=== PATIENT | female | born 1960 | race Caucasian/White ===

== ENCOUNTER → 2023-12-11 | Emergency (ER) | payer OTHER ==
[~2023-12-11] MED LIST: MORPHINE 4 MG/ML SYR ONE; ONDANSETRON 4 MG/2 ML VIAL ONE
--- OUTSIDE RECORDS SUMMARY | 2023-12-11 09:48 | XMS REPORT | Clinical Summary ---
Author Name Unknown Organization [facility] [place] Address [address] [place] [address] Care Team Providers Care Seat Trimmer Name Role Phone Giuseppe Naranjo MD Primary Care Provider [phone] [place] Beltrán MD Unavailable [phone] Tapan Campos MD Unavailable [phone] Ky Gonzalez DPM Unavailable [phone] Matthew Ruiz MD Unavailable [phone] Allergies Active Allergy Reactions Criticality Noted Date Comments Penicillins Anaphylaxis High 03/23/2017 Medications Medication Sig Dispensed Refills Start Date End Date Status DULoxetine (CYMBALTA) 60 mg capsule Take 60 mg by mouth twice daily. 0 Active HYDROcodone-acetaminop hen (NORCO) 10 mg-325 mg per tablet Take 1 tablet by mouth 2 (two) times a day as needed. 0 Active methocarbamol (ROBAXIN) 500 mg tablet Take 1,000 mg by mouth 3 (three) times a day as needed. 0 Active meloxicam (MOBIC) 15 mg tablet Take 15 mg by mouth daily. 0 Active rOPINIRole (REQUIP) 1 mg tablet Take 1 mg by mouth at bedtime. 0 Active gabapentin (NEURONTIN) 300 mg capsule Take 300 mg by mouth 3 (three) times a day. 0 Active traZODone (DESYREL) 50 mg tablet Take 50 mg by mouth at bedtime. 0 Active celecoxib (CeleBREX) 200 mg capsule Take 1 capsule by mouth daily. 0 03/12/2017 Active desvenlafaxine (PRISTIQ) 50 MG ER tablet Take by mouth daily. 0 Active betamethasone dipropionate (DIPROLENE) 0.05 % creamIndications:Nummu lar eczema APPLY TO AFFECTED AREA TWICE A DAY 45 g 2 12/14/2017 Active Medical History Medical History Date Comments Herpes zoster Social History Tobacco Use Types Packs/Day Years Used Date Smoking Tobacco: Never Alcohol Use Standard Drinks/Week Comments No 0 (1 standard drink = 0.6 oz pur e alcohol) Sex and Gender Information Value Date Recorded Sex Assigned at Not on file Gender Identity Not on file Sexual Orientation Not on file Obstetrics History Plan of Treatment Health Maintenance Due Date Last Done Comments COVID-19 Vaccination (#1) 02/25/1961 Care Teams Seat Trimmer Relationship Specialty Start Date End Date Giuseppe Naranjo MD [address] [place] [id number] PCP - General Dermatology 03/21/17 North Beltrán MD [address] [place] [id number] PCP - External Primary Care Provider Internal Medicine 03/23/17 Tapan Campos MD [address] [place] [address] PCP - External Follow Up A Orthopedic Surgery 03/23/17 Ky Gonzalez DPM [address] [place] [address] [place] [address] PCP - External Follow Up B 03/23/17 Matthew Ruiz MD [address] [place] [address] [address] [place] [address] Physician Anesthesiology 03/23/17
--- NOTE | 2023-12-11 11:08 | RAD REPORT ---
EXAM DESCRIPTION: CT - Chest Abd Pelvis Wo Con - 12/11/2023 10:41 am CLINICAL HISTORY: Chest and abdominal pain status post fall COMPARISON: July 2023 TECHNIQUE: Computed axial tomography of the chest, abdomen and pelvis was obtained. Oral contrast wa s given. IV contrast was not requested. All CT scans are performed using dose optimization technique as appropriate and may include automated exposure control or mA/KV adjustment according to patient size. FINDINGS: The evaluation of mediastinum, tanvi, vessels and solid organs is limited secondary to the lack of IV contrast administration A mildly displaced fracture left ninth posterior rib. Mildly to moderately displaced fracture left te nth posterior rib. Nondisplaced fracture left posterior eleventh rib No pneumothorax. Tiny left pleural effusion A pulmonary contusion not present. No mediastinal hematoma. A few areas of subsegmental atelectasis left lower lobe 2 millimeter nodule lingula nonspecific but probably benign The liver, spleen, pancreas, adrenals and kidneys appear grossly normal There is no evidence of diverticulitis. 2.1 centimeter left ovarian cyst unchanged Postsurgical changes lumbar spine IMPRESSION: Fractures left ninth, tenth and eleventh posterior ribs No pneumothorax.
[2023-12-11 12:22] LABS: Absolute Lymphocytes (CBC) 1.2 K/uL (0.7-4.9); Hematocrit 37.8 % (36.0-45.0); Lymphocytes % 23.8 % (15.3-44.8); MCV 100.6 fL (80-100); MPV 9.2 fL (7.6-11.3); Platelets 172 thou/uL (152-406); RBC Red Blood Cell Count 3.76 M/uL (3.86-4.86)
[2023-12-11 12:36] LABS: Albumin 3.9 g/dL (3.4-5.0); Bilirubin Direct 0.1 mg/dL (0-0.2); Bilirubin Indirect, Calculated 0.6 mg/dL (0.2-0.8); Bilirubin Total 0.7 mg/dL (0.2-1.0); Magnesium 2.4 mg/dL (1.6-2.4); Potassium 3.9 mEq/L (3.5-5.1); Protein, Total 7.3 g/dL (6.4-8.2); Troponin High Sensitivity 6.8 pg/mL (<58.9)
--- NOTE | 2023-12-11 13:27 | EDPHYS ---
Physician Documentation [facility] Name: Loan Dodd Age: 63 yrs Sex: Female : 1960 Arrival Date: 12/11/2023 Time: 09:46 Bed 13 Private MD: ED Physician Angelo Bonilla HPI: 12/11 16:03 This 63 yrs old Female presents to ER via Ambulatory with complaints of Syncope - rt [id number], Fall Injury. 16:04 Patient presents to the ED 3 days following a syncopal event. Patient states that when rt she stood up, she became acutely lightheaded, losing consciousness, falling over the toilet. There is a brief loss of consciousness. She reports pain to the left side of her back, moderate in severity. The pain is nonradiating. Denies other acute complaints, no other aggravating or alleviating factors.. Historical: - Allergies: 10:05 PENICILLINS; ap3 - PSHx: 10:05 back sx X's 3; CHRISTAL knee replacements; ap3 - Immunization history:: Adult Immunizations up to date. - Social history:: Smoking status: Patient denies any tobacco usage or history of. - Family history:: not pertinent. ROS: 16:04 Constitutional: Negative for fever, chills, and weight loss, Cardiovascular: Negative rt for chest pain, palpitations, and edema, Respiratory: Negative for shortness of breath, cough, wheezing, and pleuritic chest pain, Abdomen/GI: Negative for abdominal pain, nausea, vomiting, diarrhea, and constipation, MS/Extremity: Negative for injury and deformity, Skin: Negative for injury, rash, and discoloration, Psych: Negative for depression, anxiety, suicide ideation, homicidal ideation, and hallucinations, 16:04 Back: Positive for pain at rest, pain with movement, 16:04 Neuro: Positive for syncope, Negative for altered mental status, Exam: 16:04 Constitutional: This is a well developed, well nourished patient who is awake, alert, rt and in no acute distress. Head/Face: Normocephalic, atraumatic. Chest/axilla: Normal chest wall appearance and motion. Nontender with no deformity. No lesions are appreciated. Cardiovascular: Regular rate and rhythm with a normal S1 and S2. No gallops, murmurs, or rubs. Normal PMI, no JVD. No pulse deficits. Respiratory: Lungs have equal breath sounds bilaterally, clear to auscultation and percussion. No rales, rhonchi or wheezes noted. No increased work of breathing, no retractions or nasal flaring. Abdomen/GI: Soft, non-tender, with normal bowel sounds. No distension or tympany. No guarding or rebound. No evidence of tenderness throughout. Skin: Warm, dry with normal turgor. Normal color with no rashes, no lesions, and no evidence of cellulitis. MS/ Extremity: Pulses equal, no cyanosis. Neurovascular intact. Full, normal range of motion. Neuro: Awake and alert, GCS 15, oriented to person, place, time, and situation. Cranial nerves II-XII grossly intact. Motor strength 5/5 in all extremities. Sensory grossly intact. Cerebellar exam normal. Normal gait. Psych: Awake, alert, with orientation to person, place and time. Behavior, mood, and affect are within normal limits. 16:04 ECG was reviewed by the Attending Physician. 16:04 Back: Tenderness to the left paraspinal region, no midline Tenderness, step-offs, Vital Signs: 10:03 BP 120 / 84; Pulse 82; Resp 17; Temp 97.6; Pulse Ox 99% on R/A; Weight 68.04 kg; Height ap3 5 ft. 2 in. ; Pain 8/10; 10:03 Body Mass Index 27.44 (68.04 kg, 157.48 cm) ap3 10:03 Pain Scale: Adult ap3 MDM: 10:11 Patient medically screened. rt 16:04 Differential Diagnosis: Syncope, dysrhythmia, electro disturbance, anemia, rib rt fracture, pulmonary contusion, pneumothorax. Data reviewed: vital signs, nurses notes. Consideration of Admission/Observation Escalation of care including admission/observation considered. Patient 3 days following syncopal event with essentially negative syncope workup, do not believe she requires admission for this. Patient does have multiple rib fractures. I did offer patient admission for pain control, states that she wishes to go home. She currently has adequate pain medications are not prescribed to her at home from her pain management doctor. Will give incentive spirometer, patient to follow-up as an outpatient, return precautions discussed.. I considered the following discharge prescriptions or medication management in the emergency department Medications were administered in the Emergency Department. See MAR. Independent interpretation of the following test(s) in the Emergency Department CT Scan: My interpretation is No pneumothorax seen on interpretation of CT scan images. Test considered but Not performed: CT: Denies head trauma, headache. CT scan head not indicated. Counseling: I had a detailed discussion with the patient and/or guardian regarding the historical points, exam findings, and any diagnostic results supporting the discharge/admit diagnosis, lab results, radiology results, the need for outpatient follow up, to return to the emergency department if symptoms worsen or persist or if there are any questions or concerns that arise at home. 12/11 10:12 Order name: Basic Metabolic Panel; Complete Time: 12:38 rt 12/11 10:12 Order name: CBC with Diff; Complete Time: 12:38 rt 12/11 10:12 Order name: LFT's; Complete Time: 12:38 rt 12/11 10:12 Order name: Magnesium; Complete Time: 12:38 rt 12/11 10:12 Order name: Troponin HS; Complete Time: 12:38 rt 12/11 10:12 Order name: CT Chest Abdomen Pelvis W/O Contrast; Complete Time: 11:11 rt 12/11 13:26 Order name: INCENTIVE SPIROMETRY rt 12/11 10:12 Order name: EKG; Complete Time: 10:13 12/11 10:12 Order name: Cardiac monitoring; Complete Time: 12:31 rt 12/11 10:12 Order name: EKG - Nurse/Tech; Complete Time: 12:51 12/11 10:12 Order name: IV Saline Lock; Complete Time: 12:31 12/11 10:12 Order name: Labs collected and sent; Complete Time: 12:31 rt 12/11 10:12 Order name: O2 Per Protocol; Complete Time: 12:31 rt 12/11 10:12 Order name: O2 Sat Monitoring; Complete Time: 12:31 12/11 13:28 Order name: Misc. Order: Please give incentive spirometer; Complete Time: 13:38 rt EC:04 Rate is 64 beats/min. Rhythm is regular, Normal Sinus Rhythm with No ectopy. QRS [place] rt is Normal. GA interval is normal. QRS interval is normal. QT interval is normal. No Q waves. T waves are Normal. No ST changes noted. Interpreted by me. Administered Medications: 13:18 Drug: morphine IVP or IV 4 mg IVP once over 4 mins Route: IVP; Infused Over: 4 mins; bp Site: right forearm; 13:28 Follow up: Response: No adverse reaction bp 13:19 Drug: Ondansetron IVP 4 mg IVP once; over 2 minutes Route: IVP; Site: right forearm; bp 13:28 Follow up: Response: No adverse reaction bp Disposition Summary: 12/11/23 13:27 Discharge Ordered Notes: Location: Home rt Problem: new rt Symptoms: have improved rt Condition: Stable rt Diagnosis - Syncope rt - Left posterior ninth through eleventh rib fractures rt Followup: rt - With: Private Physician - When: 2 - 3 days - Reason: Discharge Instructions: - Discharge Summary Sheet rt - Rib Fracture rt - Syncope rt - How to Use an Incentive Spirometer rt Forms: - Medication Reconciliation Form rt - Thank You Letter rt - Antibiotic Education rt - Prescription Opioid Use rt - Patient Portal Instructions rt - Leadership Thank You Letter rt Signatures: Dispatcher [employer] Eddie Flanagan RN RN bp Alessandra Grant RN RN ap3 Angelo Bonilla MD MD rt
--- NOTE | 2023-12-11 13:27 | ER ---
Nurse's Notes [facility] Name: Loan Dodd Age: 63 yrs Sex: Female : 1960 Arrival Date: 12/11/2023 Time: 09:46 Bed 13 Private MD: Diagnosis: Syncope;Left posterior ninth through eleventh rib fractures Presentation: 12/11 10:03 Chief complaint: Patient states: she fell on Monday12/09/2023 as a result from a ap3 syncopal episode. patient denies hitting her head or being on blood thinners. patient reports continued pain to her left side patient currently reports her pain as a 8/10 on the pain scale. Coronavirus screen: At this time, the client does not indicate any symptoms associated with coronavirus-19. Ebola Screen: No symptoms or risks identified at this time. Initial Sepsis Screen: Does the patient meet any 2 criteria? No. Patient's initial sepsis screen is negative. Does the patient have a suspected source of infection? No. Patient's initial sepsis screen is negative. Risk Assessment: Do you want to hurt yourself or someone else? Patient reports no desire to harm self or others. Onset of symptoms was December 09, 2023. 10:03 Method Of Arrival: Ambulatory ap3 10:03 Acuity: AILEEN 3 ap3 Triage Assessment: 10:07 General: Appears in no apparent distress. Behavior is calm, cooperative, appropriate ap3 for age. Pain: Complains of pain in left lateral posterior chest and left lateral anterior chest Pain currently is 8 out of 10 on a pain scale. Neuro: Level of Consciousness is awake, alert, obeys commands, Oriented to person, place, time, situation, Reports a syncopal episode. Cardiovascular: Patient's skin is warm and dry. Respiratory: Airway is patent Respiratory effort is even, unlabored, Respiratory pattern is regular, symmetrical. Historical: - Allergies: 10:05 PENICILLINS; ap3 - PSHx: 10:05 back sx X's 3; CHRISTAL knee replacements; ap3 - Immunization history:: Adult Immunizations up to date. - Social history:: Smoking status: Patient denies any tobacco usage or history of. - Family history:: not pertinent. Screenin:06 [facility] ED Fall Risk Assessment (Adult) History of falling in the last 3 months, ap3 including since admission Yes- physiologic fall (2 pts) Confusion or Disorientation No (0 pts) Intoxicated or Sedated No (0 pts) Impaired Gait Yes (1 pt) Mobility Assist Device Used Yes (1 pt). Abuse screen: Denies threats or abuse. Nutritional screening: No deficits noted. Tuberculosis screening: No symptoms or risk factors identified. Assessment: 13:38 Neuro: Level of Consciousness is awake, alert, obeys commands, Oriented to person, ap3 place, time, situation, Appropriate for age Speech is normal. Cardiovascular: Rhythm is regular. Vital Signs: 10:03 BP 120 / 84; Pulse 82; Resp 17; Temp 97.6; Pulse Ox 99% on R/A; Weight 68.04 kg; Height ap3 5 ft. 2 in. ; Pain 8/10; 10:03 Body Mass Index 27.44 (68.04 kg, 157.48 cm) ap3 10:03 Pain Scale: Adult ap3 ED Course: 09:50 Patient arrived in ED. im 09:50 Angelo Bonilla MD is Attending Physician. rt 10:05 Triage completed. ap3 10:07 Arm band placed on right wrist. ap3 10:43 CT Chest Abdomen Pelvis W/O Contrast In Process Unspecified. EDMS 12:04 Initial lab(s) drawn, by me, sent to lab. em1 12:04 Inserted saline lock: 22 gauge in right forearm, using aseptic technique. Blood em1 collected. 12:31 Eddie Szymanski, RN is Primary Nurse. bp 12:55 EKG done, by ED staff, reviewed by Angelo Bonilla MD. em1 13:38 Patient has correct armband on for positive identification. Adult w/ patient. ap3 13:38 No provider procedures requiring assistance completed. IV discontinued, intact, ap3 bleeding controlled, No redness/swelling at site. Pressure dressing applied. 13:39 Provided Education on: discharge instructions . ap3 Administered Medications: 13:18 Drug: morphine IVP or IV 4 mg IVP once over 4 mins Route: IVP; Infused Over: 4 mins; bp Site: right forearm; 13:28 Follow up: Response: No adverse reaction bp 13:19 Drug: Ondansetron IVP 4 mg IVP once; over 2 minutes Route: IVP; Site: right forearm; bp 13:28 Follow up: Response: No adverse reaction bp Medication: 13:38 VIS not applicable for this client. ap3 Outcome: 13:27 Discharge ordered by . rt 13:39 Discharged to home ambulatory, ap3 13:39 Condition: good 13:39 Discharge instructions given to patient, Instructed on discharge instructions, follow up and referral plans. Demonstrated understanding of instructions, follow-up care, 13:39 Patient left the ED. ap3 Signatures: Dispatcher [employer] EDMS Dante Villatoro em1 Eddie Szymanski RN RN bp Alessandra Grant RN RN ap3 Angelo Bonilla MD MD rt Ania Huerta Corrections: (The following items were deleted from the chart) 10:06 10:03 Chief complaint: Patient states: she fell on Monday12/09/2023 as a result from ap3 a syncopal episode. patient denies hitting her head or being on blood thinners. patient reports continued pain to her left hip. patient currently reports her pain as a 8/10 on the pain scale. ap3
[2023-12-11 14:38] VITALS: BP 120/84; TEMP 97.6; O2SAT 99
== END ==
LOC: ER 09:46
DX: S22.42XA Multiple fractures of ribs, left side, initial encounter for closed fracture (principal); Z88.0 Allergy status to penicillin
CPT/HCPCS: 93005; 85025; 80048; 36415; 83735; 80076; 84484; 71250; 74176; J2405